=== PATIENT | female | born 1960 | race Caucasian/White ===

== ENCOUNTER → 2018-02-24 | Outpatient (CLI) | payer OTHER ==
[~2018-02-24] MED LIST: ACT/15 PO; AMT/50 PO; HYDR5SYP11 PO; LEVO112T4 PO; LISI-730 PO; LORA5TAB3 PO; METF-384 PO; MULT-506 PO; OMEP20TA14 PO; SIMV-151 PO
--- NOTE | 2018-02-25 13:51 | MAMMOGRAPHY REPORT ---
BILATERAL DIGITAL SCREENING MAMMOGRAM TOMOSYNTHESIS WITH CAD: 02/24/2018 CLINICAL HISTORY: Routine screening. Patient has no complaints. TECHNIQUE: The study was acquired using full field digital technology and interpreted from soft copy. Breast tomosynthesis in addition to standard 2D mammography was performed. Current study was also ev aluated with a Computer Aided Detection (CAD) system. COMPARISON: Comparison is made to exams dated: 05/30/2015 mammogram, 06/24/2013 mammogram, 0 mammogram, 05/01/2009 mammogram - [facility], 03/19/2007, and 03/22/2005 mammogram - [facility]. BREAST COMPOSITION: The tissue of both breasts is almost entirely fatty. FINDINGS: There are benign calcifications in both breasts. No suspicious mass, architectural distortion or clu ster of microcalcifications is seen. IMPRESSION: ACR BI-RADS CATEGORY 2: BENIGN There is no mammographic evidence of malignancy. A 1 year screening mammogram is recommended.( [id number]) The patient will receive written notification of the results. Some breast cancers are not detected with mammography. A negative mammographic report should not bobbi y biopsy if a clinically suggestive mass is present. Minnie Saldana M.D. ay/:02/24/2018 15:28:53 Manufacturing Engineering Director: RT Rafi(Laurita)(M), [facility] letter sent: Normal 1/2 BI-RADS Code: ACR BI-RADS Category 2: Benign
== END | disposition home or self-care (01) ==
LOC: C.MAMM 14:44
PROVIDERS: ATTEND Physician Assistant
DX: Z12.31 Encounter for screening mammogram for malignant neoplasm of breast (principal)